=== PATIENT | male | born 1980 | race Caucasian/White ===

== ENCOUNTER 2024-01-18 13:14 | Emergency (ER) | payer SELFPAY ==
[~2024-01-18] VITALS: Ht 170.2 cm; Wt 70.0 kg
[2024-01-18 13:15] VITALS: TEMP 98.1; O2SAT 99
[2024-01-18 14:34] VITALS: BP 123/63; PULSE 89; RESP 9
[2024-01-18] MEDS: BACITRACIN ZINC OINT UDPKT TOP ONE (14:34)
[2024-01-18] MEDS: LIDOCAINE HCL/PF 1% 10 MG/ML 5ML VIAL INFIL ONE ×2 (14:34→17:32)
[2024-01-18] MEDS: HYDROCODONE/ACETAMINOPHEN 5/325MG TABLET PO ONE (14:34)
[2024-01-18] MEDS: TETANUS, DIPHTHERIA, PERTUSSIS VAC/PF 0.5ML (>10YR OLD) IM ONE (14:45)
[2024-01-18] MEDS ORDERED: ACET-2708 MT (17:46)
[2024-01-18] MEDS ORDERED: IBUP-2028 MT (17:46)
[2024-01-18] MEDS ORDERED: CEPH500C2 MT (17:46)
== END 2024-01-18 18:17 | disposition home or self-care (01) ==
LOC: ER 13:14
DX: S61.012A Laceration without foreign body of left thumb without damage to nail, initial encounter (principal); W18.39XA Other fall on same level, initial encounter; Y93.89 Activity, other specified; Y92.89 Other specified places as the place of occurrence of the external cause; Y99.8 Other external cause status
CPT/HCPCS: 73130; 90715; 12004; 90471; 99283; J3490; Z7610 ×3